=== PATIENT | female | born 1945 | race Caucasian/White ===

== ENCOUNTER → 2019-01-04 | Outpatient (CLI) | payer OTHER | LOC: CAT 11:35 | DX: Z13.6 Encounter for screening for cardiovascular disorders (principal); E78.00 Pure hypercholesterolemia, unspecified; I25.10 Atherosclerotic heart disease of native coronary artery without angina pectoris ==

== ENCOUNTER → 2019-01-13 | Outpatient (CLI) | payer OTHER ==
[~2019-01-13] VITALS: Ht 152.4 cm; Wt 82.6 kg
[~2019-01-13] MED LIST: ALEVE220 MG PO; ASPIR 8181 M1 PO; JUVEN PACKET1 EAC1 PO; LIPITOR80 MG PO; PLAVIX 75 MG TA75 M1 PO; TOPROL XL25 MG PO; UNICOMPLEX M TA1 TA1 PO
[2019-01-13 08:49] VITALS: BP 174/57
--- NOTE | 2019-01-14 18:37 | EKG ---
[address] [address] ELECTROCARDIOGRAM REPORT Name: EMEKA CHEN [id number] ������������������ Admission: 01/13/19 ������������������ Attend Phys: Hernandez Ceron MD Discharge: ������������������ Date of : 49 Report #: [id number] ����������������������������������������������������������������� [id number] THIS REPORT FOR: //name// [facility] Test Date: 2019-01-13 Test Time: 09:21:42 Pat Name: EMEKA CHEN Department: Room: Gender: F Chemical Radiation Technician: Paty FINN : 1945 Requested By: Hernandez Ceron Order Number: [id number] MD: Yovany Rosas Measurements Intervals [place] Rate: 71 P: -3 PA: 149 QRS: -25 QRSD: 88 T: 75 QT: 417 QTc: 454 Interpretive Statements Sinus rhythm Left ventricular hypertrophy Inferior infarct, old Anterior infarct, old No previous ECG available for comparison Electronically Signed On 01-14-2019 18:36:58 CDT by Yovany Rosas [email or web address] ��������������������������������������������� <ELECTRONICALLY SIGNED> ���������������������������������������� By: Yovany Rosas MD ��������������������������������������������� 01/14/19 1836 920 0 Yovany Rosas MD /ANGELIQUE
== END | disposition home or self-care (01) ==
LOC: SPEC 08:22
DX: I70.213 Atherosclerosis of native arteries of extremities with intermittent claudication, bilateral legs (principal); I70.1 Atherosclerosis of renal artery; I74.3 Embolism and thrombosis of arteries of the lower extremities; I35.0 Nonrheumatic aortic (valve) stenosis; I70.0 Atherosclerosis of aorta; M19.90 Unspecified osteoarthritis, unspecified site; E78.00 Pure hypercholesterolemia, unspecified; Z98.890 Other specified postprocedural states; Z90.710 Acquired absence of both cervix and uterus; Z82.49 Family history of ischemic heart disease and other diseases of the circulatory system; E66.9 Obesity, unspecified

== ENCOUNTER 2019-01-23 08:02 | Observation (INO) | payer OTHER ==
[~2019-01-23] VITALS: Ht 152.4 cm; Wt 83.5 kg
[2019-01-23] VITALS (8 sets, daily range): BP systolic 131–169; BP diastolic 58–85
--- NOTE | ~2019-01-23 | D ---
[facility] [place] [address] DISCHARGE SUMMARY Name: EMEKA CHEN Room #: 201-P [facility] Dc#: [id number] Admission: 01/23/19 ������������������ Attend Phys: Hernandez Ceron MD Discharge: 01/24/19 ������������������ Date of : [birth year] Report #: [id number] THIS REPORT FOR: //name// CC: Cecil Odomald Linda DATE OF SERVICE: 01/24/2019 HISTORY AND HOSPITAL COURSE: A 73-year-old female who I saw yesterday for suspected significant peripheral vascular disease. She had had lower extremity peripheral artery intervention by Dr. Ceron. Subsequently, at that setting, I performed coronary angiogram, which revealed significant distal left main lesion with eccentric calcified plaque also extending into a high grade ostial circumflex, subtotal mid LAD, high-grade 70-80% proximal right and 90% distal right dominant vessel. Recent peripheral stent bilateral extremities initial one was a week or two ago, yesterday also received tibioperoneal stent, I believe, see Dr. Ceron's dictation. The patient should be on Plavix for 7 to 10 days off for 5 days and then will need revascularization by bypass. She will be discharged on a baby aspirin, Plavix, beta jess low dose 25 and a statin. Low fat, low sodium, cholesterol diet. Minimal activity, although she has been very limited by right lower extremity leg ulcer and claudication issue, which all should improve after these peripheral interventions. Was seen by our surgeons here. A carotid Doppler and echo Doppler had been performed, those studies were available. Apparently, there is a connection with a different hospital and she is not able to tell me which one that they may be electing to have bypass surgery. We can certainly forward those records on. If she has any instability or chest pain or angina, she is to return to the emergency room. There is no lifting for 48 hours. No lying in tub, Jacuzzi or abreu for 5 days. DISCHARGE DIAGNOSES: 1. Peripheral vascular disease with intervention as seen by Dr. Ceron for nonhealing leg wound. 2. Severe 3-vessel coronary artery disease involving left main with LV function lower limits of normal. 3. Borderline hypertension. 4. Hypercholesterolemia. 5. Degenerative joint disease. 6. Strong family history of premature coronary artery disease. Thank you for asking me to assist in the care of this patient. ��������������������������������������������� ���������������������������������������� By: ��������������������������������������������� 0939 1300 Daniel Mckeon MD, FACC /nt
[~2019-01-23 08:02] MED LIST changes: -LIPITOR80 MG PO; -TOPROL XL25 MG PO
[2019-01-23 10:48] LABS: HEMATOCRIT 39.2 % (37.0-47.0); HEMOGLOBIN 13.3 gm/dL (12.0-15.0); MCHC 33.8 g/dL (28.0-37.0); MCV 88.8 fL (80.0-100.0); RBC 4.42 mil/uL (4.20-5.00); RDW 13.2 % (10.5-14.5); WBC 5.9 thou/uL (4.0-11.0)
[2019-01-23 11:03] LABS: CALCIUM 9.5 mg/dL (8.5-10.1); CREATININE 0.7 mg/dL (0.6-1.0); POTASSIUM 3.9 mmol/L (3.5-5.1)
[2019-01-23 17:07] LABS: ABSOLUTE NEUTROPHILS 6.5 thou/uL (1.4-8.2); BASOPHILS 0.4 % (0.0-2.0); EOSINOPHILS 0.5 % (0.0-3.0); HEMATOCRIT 37.8 % (37.0-47.0); HEMOGLOBIN 12.9 gm/dL (12.0-15.0); LYMPHOCYTES 13.7 % (24.0-44.0); MCH 30.3 pg (26.0-34.0); MCHC 34.1 g/dL (28.0-37.0); MCV 88.7 fL (80.0-100.0); MONOCYTES 6.6 % (1.0-8.0); PLATELET COUNT 164 thou/uL (150-400); POLYS 78.8 % (36.0-66.0); RBC 4.25 mil/uL (4.20-5.00); RDW 13.4 % (10.5-14.5); WBC 8.2 thou/uL (4.0-11.0)
[2019-01-23 17:15] LABS: CALCIUM 9.5 mg/dL (8.5-10.1); CREATININE 0.6 mg/dL (0.6-1.0); POTASSIUM 3.7 mmol/L (3.5-5.1)
[2019-01-23 17:19] LABS: APTT 26.6 Seconds (24.5-32.8); PROTIME 10.3 Seconds (9.3-11.4)
[2019-01-23 17:21] LABS: ALBUMIN 3.8 g/dL (3.4-5.0); TOTAL BILIRUBIN 0.9 mg/dL (<0.1-1.0); TOTAL PROTEIN 7.1 g/dL (6.4-8.2)
--- NOTE | 2019-01-23 18:23 | NUR ---
PATIENT ARRIVED FROM [facility]ING [facility]INEER VIA BED, ALERT AND ORIENTED X4. DENIES ANY DISCOMFORT OR CP. RT GRION SITE D/C/I. BP 152/68. RT LLE ULCER PICTURES TAKEN AND WOUND CARE CONSULTED. POC INTIATED AND WILL CONTINUE TO MONITOR PATIENT CLOSELY.
[2019-01-24 00:20] LABS: URINE BILIRUBIN NEGATIVE (Negative); URINE BLOOD NEGATIVE (Negative); URINE CLARITY CLEAR; URINE COLOR YELLOW; URINE GLUCOSE-RANDOM* NEGATIVE (Negative); URINE KETONES 1+ (Negative); URINE LEUKOCYTES-REFLEX TRACE (Negative); URINE PROTEIN (DIPSTICK) NEGATIVE (Negative); URINE SPECIFIC GRAVITY <= 1.005 (1.005-1.035); URINE UROBILINOGEN 0.2 E.U./dl (0.2-1.0)
[2019-01-24 00:25] LABS: URINE NITRITE-REFLEX POSITIVE (Negative)
[2019-01-24 00:33] LABS: BACTERIA-REFLEX 1-9 Few /HPF (None Seen); CASTS None Seen /LPF (None Seen); CRYSTALS None Seen /LPF (None Seen); MUCUS 0-3 Light strn/LPF (None Seen); SQUAMOUS 0-3 Few /LPF (0-3); URINE RBC 0-2 Rare /HPF (0-2); URINE WBC-REFLEX 6-15 Few /HPF (0-5); WBC CLUMPS Few (None Seen)
--- NOTE | 2019-01-24 03:20 | NUR ---
ASSESSMENTS CHARTED. PT HAS MULTI VESSEL DISEASE, NEEDS CABG. PATIENT IS UNDECIDED ABOUT HAVING IT DONE HERE. HER SON IS RESEARCHING OPTIONS. PT HAD 14 BEAT RUN OF V-TACH. RT GROIN SITE IS C/D/I/SOFT. REDRESSED RIGHT ANKLE WOUND..
[2019-01-24 04:07] LABS: GLYCOHEMOGLOBIN (HGB A1C) 4.8 % (4.8-5.6)
[2019-01-24 05:48] VITALS: BP 151/63
[2019-01-24 08:01] VITALS: BP 148/56
--- NOTE | 2019-01-24 08:52 | H ---
[facility] [place] [address] HISTORY AND PHYSICAL Name: EMEKA CHEN Room #: 201-P [facility] Shannon Dc#: [id number] Admission: 01/23/19 ������������������ Attend Phys: Hernandez Ceron MD Discharge: ������������������ Date of : 49 Report #: [id number] THIS REPORT FOR: //name// CC: Cecil Ceron DATE OF SERVICE: 01/23/2019 HISTORY OF PRESENT ILLNESS: The patient is a 73-year-old female I am asked to evaluate for cardiovascular disease. There is marked calcium score elevation and peripheral vascular disease. Questionable anginal symptoms with some dyspnea, shortness of breath and really decrease in exercise tolerance recently. She is relatively inactive. Had a high-grade left popliteal artery that was intervened on by Dr. Ceron. At the same setting, I proceeded with cardiac catheterization. There is evidence of a high-grade and somewhat of a surprising distal left main lesion calcified, very eccentric plaque of 70% at least distally, then giving rise to at least a 70-80% ostial circumflex, also calcified. Mild proximal LAD disease, mid LAD has a 90% and the first OM also has 50%. There is a ramus branch with moderate disease in the dominant right, which has a 70-80% proximal and an 80-90% distal lesion with preserved PDA. There is no prior documented coronary disease, so some of this is somewhat surprising, but has significant risk factors. She is pain free post-procedure here. MEDICATIONS: Her current medications are multivitamin, aspirin, Aleve. She does not take blood pressure medicine, just take a statin. I do not have any recent lipids. PAST MEDICAL HISTORY: Positive for hypercholesterolemia, peripheral vascular disease, DJD, arthritis, nonhealing prior ankle ulcer, hysterectomy, tonsillectomy, left hip arthroplasty. FAMILY HISTORY: Strongly positive for premature disease including mother, father and brother. Two brothers prematurely. SOCIAL HISTORY: She lives with her son. No current alcohol or tobacco. She is retired. ALLERGIES: No known drug allergies. LABORATORY WORK: Creatinine is normal. GFR is 90. PHYSICAL EXAMINATION: VITAL SIGNS: Blood pressure 150/70, pulse is 70s-80s. HEENT: Eyes reveal xanthelasmas. Pharynx is clear. [address] [address] HISTORY AND PHYSICAL Name: EMEKA CHEN Room #: [facility] Dao#: [id number] Admission: 01/23/19 ������������������ Attend Phys: Hernandez Ceron MD Discharge: ������������������ Date of : 49 Report #: [id number] NECK: Shows preserved upstrokes without JVD or bruits. LUNGS: Slight prolonged expiratory phase, but clear. CARDIAC: S1, S2. ABDOMEN: Soft. No HSM or abdominal bruit. EXTREMITIES: Reveal I could not palpate the left distal pulse, faintly palpable on the right. SKIN: Warm and dry. There are some venous stasis changes. The right ankle is wrapped with a slow healing ulcer she has had prior and she did have intervention on the right lower extremity. She is on Plavix. NEUROLOGIC: Intact. ASSESSMENT: 1. Coronary artery disease with severe 3-vessel coronary disease, distal left main disease. 2. Hypercholesterolemia. 3. Peripheral vascular disease by recent bilateral SFA interventions, see Dr. Ceron's dictation and recent initiation of statin therapy. 4. Degenerative joint disease. 5. Strong family history of premature coronary disease. RECOMMENDATIONS AND PLAN: We will admit to CCU. I would like to re-evaluate these films, but she had some hypotension with injections here and some mild shortness of breath associated. Certainly very sedentary because of this peripheral vascular disease, but has significant coronary disease which may be addressed this hospitalization with revascularization by bypass. We will call [facility] CV Surgery and carotid Doppler if there has not been one recently performed. Continue statin. We will add low-dose beta jess and continue high dose statin. ��������������������������������������������� <ELECTRONICALLY SIGNED> ���������������������������������������� By: Daniel Mckeon MD, FACC ��������������������������������������������� 01/24/19 0852 1322 1403 Daniel Mckeon MD, FACC /nt
[2019-01-24] MEDS ORDERED: TOPROL XL25 MG PO (09:04)
[2019-01-24] MEDS ORDERED: LIPITOR80 MG PO (09:04)
--- NOTE | 2019-01-24 09:16 | 2DMMODE ---
[facility] [place] [address] 2 D/M-MODE ECHOCARDIOGRAM Name: CHENEMEKA L Room #: 201-P ADM IN .R.#: [id number] ������������� Admission: 01/23/19 ������������� Attend Phys: Hernandez Ceron, Discharge: ��� ������������� ��� Date of : 49 Date of Service: 01/24/19 0915 �� Report #: [id number] �������� ��������������������������������������������[id number] THIS REPORT FOR: //name// APPROVED REPORT Study performed: 01/24/2019 08:22:16 EXAM: Comprehensive 2D, Doppler, and color-flow Echocardiogram Patient Location: Echo lab Room #: 201 Status: routine BSA: 1.80 HR: 74 bpm BP: 151/63 mmHg Rhythm: NSR Other Information Study Quality: Good Indications CAD 2D Dimensions RVDd: 26.21 mm IVSd: 10.59 (7-11mm) LVOT Diam: 20.60 (18-24mm) LVDd: 50.95 mm PWd: 10.23 (7-11mm) Ascending Ao: 38.70 (22-36mm) LVDs: 36.36 (25-40mm) Aortic Root: 32.32 mm Volumes Left Atrial Volume (Systole) Single Plane 4CH: 57.62 mL Single Plane 2CH: 72.89 mL LA ESV Index: 37.00 mL/m2 Aortic Valve AoV Peak Anderson.: 2.30 m/s AO Peak Gr.: 21.13 mmHg LVOT Max P.41 mmHg AO Mean Gr.: 10.38 mmHg AO V2 Mean: 1.55 m/s LVOT Max V: 1.05 m/s AO V2 VTI: 48.10 cm DANIEL Vmax: 1.52 cm2 AI Vmax: 4.34 m/s AI [place]: 2.60 m/s2 AI PHT: 484.[address] [facility] [place] [address] 2 D/M-MODE ECHOCARDIOGRAM Name: EMEKA CHEN Room #: 201-P [facility] [place] M.R.#: [id number] ������������� Admission: 01/23/19 ������������� Attend Phys: Hernandez Ceron, Discharge: ��� ������������� ��� Date of : 49 Date of Service: 01/24/19 0915 �� Report #: [id number] �������� ��������������������������������������������[id number] Mitral Valve E/A Ratio: 0.6 MV Decel. Time: 337.50 ms MV E Max Anderson.: 0.71 m/s MV A Anderson.: 1.12 m/s MV PHT: 97.88 ms IVRT: 117.65 ms Pulmonary Valve PV Peak Anderson.: 1.15 m/s PV Peak Gr.: 5.25 mmHg Pulmonary Vein P Vein S: 0.66 m/s P Vein A: 0.35 m/s P Vein D: 0.30 m/s P Vein A Dur.: 90.0 msec P Vein S/D Ratio: 2.20 Tricuspid Valve TR Peak Anderson.: 2.00 m/s RAP Estimate: 5.00 mmHg TR Peak Gr.: 16.00 mmHg PA Pressure: 21.00 mmHg Left Ventricle The left ventricle is normal size. There is normal left ventricular wall thickness. Left ventricular systolic function is normal. LVEF is 50-55%. Mild diastolic dysfunction is present (impaired relaxation pattern). Right Ventricle The right ventricle is normal size. The right ventricular systolic function is normal. Atria Left atrium is mildly dilated. The right atrium size is normal. Aortic Valve Aortic valve is trileaflet and calcified. Mild aortic regurgitation. There is very mild valvular aortic stenosis with maximum pressure gradient of 21 mmHg and mean pressure gradient of 10 mmHg. Mitral Valve Mitral valve leaflets are mildly thickened. Mild mitral annular calcification. Mild mitral regurgitation. No evidence of mitral valve stenosis. [facility] [address] [place] [address] 2 D/M-MODE ECHOCARDIOGRAM Name: EMEKA CHEN Room #: 201-P ADM IN [facility].#: [id number] ������������� Admission: 01/23/19 ������������� Attend Phys: Hernandez Ceron, Discharge: ��� ������������� ��� Date of : 49 Date of Service: 01/24/19 0915 �� Report #: [id number] �������� ��������������������������������������������[id number] Tricuspid Valve The tricuspid valve is normal in structure. Trace tricuspid regurgitation. Estimated PAP is 20-25mmHg. Pulmonic Valve The pulmonary valve is normal in structure. Mild pulmonic regurgitation. Great Vessels The aortic root is normal in size. The ascending aorta is mildly dilated at 3.9cm. IVC is normal in size and collapses >50% with inspiration. Pericardium There is no pericardial effusion. <Conclusion> The left ventricle is normal size. LVEF is 50-55%. Mild diastolic dysfunction is present (impaired relaxation pattern). The right ventricle is normal size. Left atrium is mildly dilated. Aortic valve is trileaflet and calcified. Mild aortic regurgitation. There is very mild valvular aortic stenosis with maximum pressure gradient of 21 mmHg and mean pressure gradient of 10 mmHg. Mitral valve leaflets are mildly thickened. Mild mitral annular calcification. Mild mitral regurgitation. Trace tricuspid regurgitation. Estimated PAP is 20-25mmHg. The aortic root is normal in size. There is no pericardial effusion. ��������������������������������������������� <ELECTRONICALLY SIGNED> ���������������������������������������� By: Daniel Mckeon MD, FACC ��������������������������������������������� 01/24/19914 4 4 Daniel Mckeon MD, FACC /INF
--- NOTE | 2019-01-24 09:48 | NUR ---
Nutrition: Admitted with CAD s/p atherectomy. Hx of PVD. Seen for nonhealing ulcer on right ankle. Pt is vegan and does not consume meat, eggs, dairy products. All supplements available are milk based, pt does not want to try. Has been on Arnulfo for last several weeks. Will return at later date for CABG. Gave options to accommodate food preferences at that time. Stated d/c today.
[2019-01-24 10:48] VITALS: BP 153/69
[2019-01-24 11:13] VITALS: BP 153/69
--- NOTE | 2019-01-24 16:54 | EKG ---
[address] [place] [address] ELECTROCARDIOGRAM REPORT Name: EMEKA CHEN Room #: 201-P [facility]#: [id number] ������������������ Admission: 01/23/19 ������������������ Attend Phys: Hernandez Ceron MD Discharge: 01/24/19 ������������������ Date of : 49 Report #: [id number] ����������������������������������������������������������������� [id number] THIS REPORT FOR: //name// [facility] Test Date: 2019-01-23 Test Time: 10:41:12 Pat Name: EMEKA CHEN Department: Room: [facility] Gender: F Staffing Operations Manager: Paty FINN : 1945 Requested By: Daniel Mckeon Order Number: [id number] MD: Corey Campbell Measurements Intervals [place] Rate: 75 P: 12 IA: 151 QRS: -24 QRSD: 87 T: 97 QT: 407 QTc: 455 Interpretive Statements Sinus rhythm LVH with secondary repolarization abnormality Inferior infarct, old Anterior infarct, old Compared to ECG 01/13/2019 09:21:42 No significant change was found Electronically Signed On 01-24-2019 16:54:39 CDT by Corey Campbell [email or web address] ��������������������������������������������� <ELECTRONICALLY SIGNED> ���������������������������������������� By: Corey Campbell MD, [facility] ��������������������������������������������� 01/24/19 1654 1041 1041 Corey Campbell MD, [facility] /EPI
--- NOTE | 2019-01-24 17:24 | CATHLAB ---
[facility] [place] [address] INVASIVE PROCEDURE REPORT Name: EMEKA CHEN Room #: 201-P [facility].#: [id number] ������������� Admission: 01/23/19 ������������� Attend Phys: Hernandez Ceron, Discharge: ��� 01/24/19 ������������� ��� Date of : 49 Date of Service: 01/24/19 1723 �� Report #: [id number] �������� ��������������������������������������������[id number] THIS REPORT FOR: //name// APPROVED REPORT Study performed: 01/23/2019 12:54:33 Patient Details Patient Status: Out-Patient Room #: The patient is a 73 year-old female Event Personnel Daniel Mckeon Nurse Assistant, Yanna Worthington RN, Pamela Quigley RTR, CLINICAL ACCOUNT EXECUTIVE Monitor, Tita Gregory Kline, Tiffany RN marketing content manager Performed Art Access - R femoral artery* Left Heart Cath w/or w/o Coronaries [id number] [facility] Hemostasis w/ Mynx 13879 Initial Mod Sed Same Phys/QHP Gr5y [id number] Indication Chest pain Procedure Narrative The was infiltrated with 1% Lidocaine subcutaneous anesthesia. A PINNACLE 7FR Sheath #[id number] sheath was inserted into the RFA. Coronary angiography was performed using coronary diagnostic catheters. The right coronary system was accessed and visualized with a JR4 catheter. The left coronary system was accessed and visualized with a JL4 catheter. The left ventricle was accessed and visualized with a PIGTAIL catheter. Left ventriculogram was performed in 30 degree projection. Closure device was deployed with a 7 Fr MYNXGRIP 6/7F #[id number]. The patient tolerated the procedure well and there were no complications associated with the procedure. There was no hematoma. Intraoperative Conscious Sedation Sedation start time: 12:58 Case end Time: 13:27 Fentanyl 25 mcg Versed 0.5 mg Fluoro Time: 2.12 minutes Dose: DAP 3219.40 cGycm2 359 mGy Contrast Type and Amount: Omnipaque 85ml [facility] [place] [address] INVASIVE PROCEDURE REPORT Name: EMEKA CHEN Room #[facility] [id number] ������������� Admission: 01/23/19 ������������� Attend Phys: Hernandez Ceron, Discharge: ��� 01/24/19 ������������� ��� Date of : 49 Date of Service: 01/24/19 1723 �� Report #: [id number] �������� ��������������������������������������������[id number] Hemodynamics The aortic pressure is 130/55 mmHg with a mean of 84 mmHg. The left ventricular pressure is 142/10 mmHg with a mean of mmHg. The left ventricular end diastolic pressure is 16 mmHg. PCI Technique Lesion Percutaneous coronary intervention was performed on the Popliteal. Conclusion #1 left ventriculogram reveals normal left ventricular function ejection fraction 55-60% no wall motion abnormality #2 there is a high-grade calcified eccentric plaque in the distal left main involving the ostium of the circumflex artery which is at least codominant 70% range #3 LAD is proximal calcification with mild to moderate disease and then a mid vessel lesion which is subtotaled and fills the LAD as it extends around the apex. #4 circumflex OM is nondominant but moderate distribution. Eccentric high-grade lesion of 70-80% at the ostium of this vessel involved in the distal left main lesion. Preserved large first OM and distal OM branch. #5 anatomically dominant right eccentric proximal lesion of 70-80% and then a high-grade distal lesion at the takeoff of the PDA of 80-90% with a preserved PDA posterior lateral branch comes off of the circumflex artery Indications and plan: Patient has significant proximal calcification and three-vessel disease involving distal left main. She will be better served with revascularization by bypass surgery. Patient is status post peripheral stent placed bilateral one week and today. Would recommend 7-10 days of Plavix. Cessation of Plavix and then bypass surgery 5 days after cessation. She is hemodynamically stable and pain-free. Will have further discussion with CV surgery. ��������������������������������������������� <ELECTRONICALLY SIGNED> ���������������������������������������� By: Daniel Mckeon MD, FACC ��������������������������������������������� 01/24/191722 22 22 Daniel Mckeon MD, FACC /INF
--- NOTE | 2019-01-24 18:18 | NUR ---
ASSUMED CARE OF PT AT 0700. PT A&OX4, UP WITH STANDBY WITH STEADY SAFE GAIT. CARDIOLOGY, AND CARDIOTHORASIC SURGERY ROUNDED ON PT AND EXPLAINED TO HER AND HER SON THE DIAGNOSIS AND CARE PLAN. THE SON CHERI STATED HE WAS GOING TO HAVE HIS ICU NURSE FRIEND LOOK AT THE PTS RECORDS. HE ALSO SAID HE HAD "A DOCTOR" THAT WOULD REQUEST THE PT'S RECORDS. THE PT AGREED WITH THIS PLAN. PT DISCHARGED TO HOME AT APPROX 1030. POPEYE TAYLOR CALLED IN PRESCRIPTION FOR METOPROLOL.
--- NOTE | 2019-01-25 11:49 | EKG ---
[address] [place] [address] ELECTROCARDIOGRAM REPORT Name: CHENDEIDRAEMEKA L Room #: 201-P [facility] M..#: [id number] ������������������ Admission: 01/23/19 ������������������ Attend Phys: Hernandez Ceron MD Discharge: 01/24/19 ������������������ Date of : 49 Report #: [id number] ����������������������������������������������������������������� [id number] THIS REPORT FOR: //name// [facility] Test Date: 2019-01-24 Test Time: 07:08:43 Pat Name: EMEKA CHEN Department: Room: [facility] Gender: F Structurer: MARCIA : 1945 Requested By: Bradly Greene Order Number: [id number] MD: Yovany Rosas Measurements Intervals [place] Rate: 79 P: -5 SC: 147 QRS: -24 QRSD: 87 T: 92 QT: 394 QTc: 452 Interpretive Statements Sinus rhythm Ventricular premature complex Poor R-wave progression, late transition LVH with secondary repolarization abnormality Inferior infarct, old Compared to ECG 01/13/2019 09:21:42 no significant changes Electronically Signed On 01-25-2019 11:49:10 CDT by Yovany Rosas [email or web address] ��������������������������������������������� <ELECTRONICALLY SIGNED> ���������������������������������������� By: Yovany Rosas MD ��������������������������������������������� 01/25/19 1149 0708 0708 Yovany Rosas MD /EPI
--- NOTE | 2019-01-26 12:16 | HC ---
[facility] [place] [address] CONSULTATION Name: EMEKA CHEN Room #: 201-P [facility] Shannon Dc#: [id number] Admission: 01/23/19 ������������������ Attend Phys: Hernandez Ceron MD Discharge: 01/24/19 ������������������ Date of : 49 Report #: [id number] THIS REPORT FOR: //name// CC: Cecil Mckeon DATE OF SERVICE: 01/23/2019 We were asked to see the patient by Dr. Mckeon. HISTORY OF PRESENT ILLNESS: The patient is a 73-year-old with coronary artery disease. The patient presented with lower extremity claudication and had a left popliteal atherectomy with stent placement on 01/23/2019. In addition, because the patient had markedly elevated calcium score, coronary arteriography was done by Dr. Mckeon. The patient has left main coronary artery disease in addition to disease in all of the other 3 vessels (LAD, circumflex, and right coronary arteries). Left ventricular function is satisfactory by echo and measures 50-55% ejection fraction. In review of this, the patient states that she has not had any angina, although her activity has been somewhat limited by claudication. The patient was able to walk around [employer] without difficulty recently. PAST MEDICAL HISTORY: Also significant for hypercholesterolemia, degenerative joint disease, nonhealing ulcer in the ankle, hysterectomy, tonsillectomy, left hip arthroplasty. FAMILY HISTORY: Strongly positive for precocious coronary artery disease. SOCIAL HISTORY: The patient lives with her son. No tobacco or alcohol. ALLERGIES: None known. MEDICATIONS AT HOME: The patient states that she takes only multivitamins and aspirin at home. She was recently prescribed statin and Plavix. REVIEW OF SYSTEMS: GENERAL: The patient denies recent fatigability or fever. HEAD: Denies headache. EENT: No vision changes, no hearing changes, no sore throat. ENDOCRINE: No hot or cold intolerance. No goiter. PULMONARY: No shortness of breath or sputum production. CARDIAC: Denies angina. Denies palpitations. GASTROINTESTINAL: No nausea, vomiting or blood. GENITOURINARY: No urgency, frequency, or blood. [address] [address] CONSULTATION Name: EMEKA CHEN Room #: 201-P [facility] Dao#: [id number] Admission: 01/23/19 ������������������ Attend Phys: Hernandez Ceron MD Discharge: 01/24/19 ������������������ Date of : 49 Report #: [id number] MUSCULOSKELETAL: Problems with arthritis on occasion. NEUROLOGIC: No motor or sensory dysfunction. SKIN: Nonhealing lesion in the right ankle. HEMATOLOGIC: No anemia, no bruisability. PSYCHIATRIC: No depression or anxiety. PHYSICAL EXAMINATION: GENERAL: The patient is a pleasant woman. She is lying in bed comfortably. VITAL SIGNS: Temperature 36.5, heart rate 78, respiratory rate 14, blood pressure 148/56, O2 sat 100 on room air. HEENT: Normocephalic. Pupils are round, equal. NECK: No mass, no bruit. CHEST: Clear to auscultation. HEART: Rhythm regular, no murmur. ABDOMEN: Soft. No mass or tenderness. EXTREMITIES: Dressed lesion right ankle. Toes are pink. No cyanosis. No edema. VASCULAR: I do not feel distal pulses currently, no obvious saphenous vein problems. MUSCULOSKELETAL: There is no bone or joint dissymmetry or malformation. NEUROLOGIC: No obvious motor or sensory dysfunction. PSYCHIATRIC: The patient is oriented and appropriate. Mood is neither elevated nor flat and the patient shows insight into problem. ASSESSMENT AND PLAN: The patient has peripheral artery occlusive disease, just treated with stent placement and coronary artery disease. The risks and details of coronary artery bypass were discussed. These include but are not limited to bleeding, infection, anesthesia risks, heart and lung problems, stroke and . Options and alternatives were reviewed. We have suggested obtaining a P2Y12 activity study to see whether or not the patient is a responder to Plavix. If she is, I would prefer to have the patient off Plavix for a few days before surgery as the patient is asymptomatic. I think this is a safe approach, but I will confer with Dr. Mckeon. Thank you for the consult. ��������������������������������������������� <ELECTRONICALLY SIGNED> ���������������������������������������� By: Rosalino Roldan MD ��������������������������������������������� 01/26/19 [id number] Rosalino Roldan MD /nt
== END 2019-01-24 11:57 | disposition home or self-care (01) ==
LOC: SPEC 08:02 → 2N 15:41 → SPEC 15:42 → ENTRNSPT 01-24 11:38 → EDTRNSPTSTS 01-24 11:52 → 2N 01-24 11:57
PROVIDERS: Physician Assistant; ADMIT Internal Medicine Cardiovascular Disease
DX: I25.10 Atherosclerotic heart disease of native coronary artery without angina pectoris (principal); E78.00 Pure hypercholesterolemia, unspecified; I73.9 Peripheral vascular disease, unspecified; M19.90 Unspecified osteoarthritis, unspecified site; Z82.49 Family history of ischemic heart disease and other diseases of the circulatory system; Z90.710 Acquired absence of both cervix and uterus; Z90.89 Acquired absence of other organs; Z96.642 Presence of left artificial hip joint
CPT/HCPCS: 10081